=== PATIENT | female | born 1990 | race Caucasian/White ===

== ENCOUNTER 2018-07-14 16:16 | Emergency (ER) | payer MEDICAID, SELFPAY | END 2018-07-14 16:30 | disposition home or self-care (01) | LOC: ERS 16:16 | DX: J32.9 Chronic sinusitis, unspecified (principal); F17.210 Nicotine dependence, cigarettes, uncomplicated | CPT/HCPCS: 99283 ==

== ENCOUNTER 2019-08-02 08:29 | Emergency (ER) | payer SELFPAY ==
--- NOTE | 2019-08-02 09:46 | CT ---
CT CERVICAL SPINE WITH CORONAL AND SAGITTAL REFORMATIONS AND NO IV CONTRAST: Date: 08/02/2019 HISTORY: Fall, neck pain, headache. FINDINGS/IMPRESSION: There is loss of cervical lordosis with mild reversal. No acute fracture, subluxation, or facet malal ignment is seen. POS: [facility]
--- NOTE | 2019-08-02 09:46 | CT ---
CT BRAIN WITHOUT CONTRAST: Date: 08/02/2019 HISTORY: Head injury, headache. FINDINGS: No evidence of acute infarct, hemorrhage, midline shift, or abnormal extra-axial fluid collections ar e seen. The ventricular size is normal and the basilar cisterns are patent. The bony calvarium is int act. There is mucosal disease in the paranasal sinuses. IMPRESSION: No CT evidence of acute intracranial process. POS: [facility]
== END 2019-08-02 10:46 | disposition home or self-care (01) ==
LOC: ERS 08:29
DX: S09.90XA Unspecified injury of head, initial encounter (principal); F17.210 Nicotine dependence, cigarettes, uncomplicated; W18.30XA Fall on same level, unspecified, initial encounter
CPT/HCPCS: 70450; 72125